=== PATIENT | female | born 1945 | race Two or more races ===

== ENCOUNTER 2020-03-17 10:00 | Outpatient (CLI) | payer OTHER ==
[2020-03-17 11:48] LABS: C-REACTIVE PROTEIN 0.4 mg/dL (0.0-0.9)
[2020-03-17 11:49] LABS: BILIRUBIN,TOTAL 0.5 mg/dL (0.2-1.0); CALCIUM, SERUM 9.3 mg/dL (8.5-10.1); CREATININE 0.6 mg/dL (0.6-1.3); POTASSIUM 3.8 mmol/L (3.5-5.1); TOTAL PROTEIN, SERUM 7.3 g/dL (6.4-8.2)
[2020-03-17 11:59] LABS: BASOPHILS % (AUTO) 0.6 % (0.0-2.0); EOSINOPHILS % (AUTO) 1.9 % (0.0-6.0); HEMATOCRIT 43 % (33-45); HEMOGLOBIN 13.9 g/dL (11.5-14.8); LYMPHOCYTES # (AUTO) 1.1 /CMM (0.8-4.8); LYMPHOCYTES % (AUTO) 25.3 % (20.0-44.0); MEAN CORPUSCULAR HGB CONC 33 g/dl (31.0-36.0); MEAN CORPUSCULAR VOLUME 91 fL (82-100); MONOCYTES # (AUTO) 0.3 /CMM (0.1-1.30); MONOCYTES % (AUTO) 7.4 % (2.0-12.0); NEUTROPHILS # (AUTO) 2.8 /CMM (1.8-8.9); NEUTROPHILS % (AUTO) 64.8 % (43.0-81.0); PLATELET COUNT (AUTO) 219 /CMM (150-450); RED BLOOD CELL COUNT(AUTO) 4.66 MIL/uL (4.0-5.2); WHITE BLOOD COUNT (AUTO) 4.2 K/uL (4.3-11.0)
[2020-03-17 13:12] LABS: APPEARANCE,URINE SL CLOUDY (CLEAR); BILIRUBIN,URINE NEGATIVE (NEGATIVE); BLOOD, URINE NEGATIVE Ery/uL (NEGATIVE); COLOR,URINE YELLOW (YELLOW); KETONES,URINE NEGATIVE (NEGATIVE); LEUKOCYTE ESTERASE ,URINE NEGATIVE (NEGATIVE); NITRITE, URINE NEGATIVE (NEGATIVE); PROTEIN,URINE NEGATIVE (NEGATIVE); UGLUCOSE NEGATIVE (NEGATIVE); UROBILINOGEN,URINE 0.2 EU/dL (0.2)
== END 2020-03-17 23:59 | disposition home or self-care (01) ==
LOC: WOU 10:00
PROVIDERS: ATTEND Internal Medicine
DX: M17.0 Bilateral primary osteoarthritis of knee (principal); R10.9 Unspecified abdominal pain; J40 Bronchitis, not specified as acute or chronic; I10 Essential (primary) hypertension; E78.5 Hyperlipidemia, unspecified; F41.9 Anxiety disorder, unspecified; K21.9 Gastro-esophageal reflux disease without esophagitis
CPT/HCPCS: 36415; 80053-TC; 80061-TC; 81000-TC; 82306; 85025-TC; 85652-TC; 86140-TC

== ENCOUNTER 2020-03-26 14:39 | Outpatient (CLI) | payer OTHER | END 2020-03-26 23:59 | disposition home or self-care (01) | LOC: LAB 14:39 | PROVIDERS: ATTEND Internal Medicine | DX: Z11.59 Encounter for screening for other viral diseases (principal) | CPT/HCPCS: C9803; U0003 ==

== ENCOUNTER 2020-03-31 12:08 | Outpatient (CLI) | payer OTHER | END 2020-03-31 23:59 | disposition home or self-care (01) | LOC: LAB 12:08 | PROVIDERS: ATTEND Internal Medicine | DX: Z20.828 Contact with and (suspected) exposure to other viral communicable diseases (principal) | CPT/HCPCS: 36415 ==

== ENCOUNTER 2020-06-01 10:50 | Outpatient (CLI) | payer MEDICARE, MEDICAID ==
[2020-06-01 13:23] LABS: BASOPHILS % (AUTO) 0.6 % (0.0-2.0); EOSINOPHILS % (AUTO) 1.8 % (0.0-6.0); HEMATOCRIT 44 % (33-45); HEMOGLOBIN 14.4 g/dL (11.5-14.8); LYMPHOCYTES # (AUTO) 1.1 /CMM (0.8-4.8); LYMPHOCYTES % (AUTO) 21.9 % (20.0-44.0); MEAN CORPUSCULAR HGB CONC 33 g/dl (31.0-36.0); MEAN CORPUSCULAR VOLUME 90 fL (82-100); MONOCYTES # (AUTO) 0.4 /CMM (0.1-1.30); MONOCYTES % (AUTO) 7.5 % (2.0-12.0); NEUTROPHILS # (AUTO) 3.5 /CMM (1.8-8.9); NEUTROPHILS % (AUTO) 68.2 % (43.0-81.0); PLATELET COUNT (AUTO) 222 /CMM (150-450); WHITE BLOOD COUNT (AUTO) 5.1 K/uL (4.3-11.0)
[2020-06-01 13:28] LABS: APPEARANCE,URINE CLEAR (CLEAR); BILIRUBIN,URINE NEGATIVE (NEGATIVE); BLOOD, URINE NEGATIVE Ery/uL (NEGATIVE); COLOR,URINE YELLOW (YELLOW); KETONES,URINE NEGATIVE (NEGATIVE); LEUKOCYTE ESTERASE ,URINE NEGATIVE (NEGATIVE); NITRITE, URINE NEGATIVE (NEGATIVE); PH,URINE 5.5 (5.0-8.0); PROTEIN,URINE NEGATIVE (NEGATIVE); UGLUCOSE NEGATIVE (NEGATIVE); UROBILINOGEN,URINE 0.2 EU/dL (0.2)
[2020-06-01 13:52] LABS: CREATININE, URINE 168.2 MG/DL (30.0-125.0); URINE TOTAL PROTEIN 14.9 mg/dL (0-11.9)
[2020-06-01 13:58] LABS: ALANINE AMINOTRANSFERASE 29 U/L (12-78); ALKALINE PHOSPHATASE 81 U/L (46-116); ASPARTATE AMINOTRANSFERASE 12 U/L (15-37); BILIRUBIN,TOTAL 0.6 mg/dL (0.2-1.0); CALCIUM, SERUM 9.3 mg/dL (8.5-10.1); CARBON DIOXIDE 27 mmol/L (21-32); CHLORIDE 101 mmol/L (98-107); CREATININE 0.7 mg/dL (0.6-1.3); GLUCOSE 92 mg/dL (74-106); MAGNESIUM 1.9 mg/dL (1.8-2.4); PHOSPHORUS 3.8 mg/dL (2.5-4.9); POTASSIUM 4.3 mmol/L (3.5-5.1); SODIUM SERUM 136 mmol/L (136-145); TOTAL PROTEIN, SERUM 7.7 g/dL (6.4-8.2); UREA NITROGEN, BLOOD 15 mg/dL (7-18)
[2020-06-01 14:05] LABS: CHOLESTEROL 232 mg/dL (<200); FREE T4 (FREE THYROXINE) 1.08 ng/dL (0.76-1.46); HDL CHOLESTEROL 66 mg/dL (40-60); LDL 129 mg/dL (0-99); THYROID STIMULATING HORMONE 1.118 uIU/mL (0.358-3.74); TRIGLYCERIDES 219 mg/dL (30-150)
[2020-06-01 14:22] LABS: C-REACTIVE PROTEIN < 0.2 mg/dL (0.0-0.9)
[2020-06-02 08:10] LABS: FOLIC ACID 16.1 ng/mL (>3.0)
[2020-06-02 12:11] LABS: *ANA ANTI-CENTROMERE B AB 4.5 AI (0.0-0.9); *ANA ANTI-DNA(DS) AB, QN 3 IU/mL (0-9); *ANA ANTI-JO-1 <0.2 AI (0.0-0.9); *ANA ANTICHROMATIN ANTIBODY <0.2 AI (0.0-0.9); *ANA RNP ANTIBODIES 0.4 AI (0.0-0.9); *ANA SJOGREN'S ANTI-SS-A <0.2 AI (0.0-0.9); *ANA SJOGREN'S ANTI-SS-B <0.2 AI (0.0-0.9); *ANAANTI-SCLERODERMA-70 AB 0.5 AI (0.0-0.9); *ANASMITH AB <0.2 AI (0.0-0.9)
== END 2020-06-01 23:59 | disposition home or self-care (01) ==
LOC: MSC 10:50
PROVIDERS: ATTEND Internal Medicine
DX: M17.0 Bilateral primary osteoarthritis of knee (principal); I10 Essential (primary) hypertension; E78.5 Hyperlipidemia, unspecified; J40 Bronchitis, not specified as acute or chronic; F41.9 Anxiety disorder, unspecified; E55.9 Vitamin D deficiency, unspecified; K21.9 Gastro-esophageal reflux disease without esophagitis; Z79.899 Other long term (current) drug therapy
CPT/HCPCS: 36415; 80053; 80061; 81001; 82306; 82570; 82607; 82746; 83036; 83735; 84100; 84155; 84439; 84443; 85025; 85652; 86140; 86225; 86235 ×8; G0463; 81000-TC

== ENCOUNTER 2020-09-28 10:29 | Outpatient (CLI) | payer MEDICARE, MEDICAID | END 2020-09-28 23:59 | disposition home or self-care (01) | LOC: MSC 10:29 | PROVIDERS: ATTEND Internal Medicine | DX: R10.9 Unspecified abdominal pain (principal); J32.9 Chronic sinusitis, unspecified; E55.9 Vitamin D deficiency, unspecified; E78.5 Hyperlipidemia, unspecified; M17.0 Bilateral primary osteoarthritis of knee; I10 Essential (primary) hypertension; F41.9 Anxiety disorder, unspecified; K21.9 Gastro-esophageal reflux disease without esophagitis; Z79.899 Other long term (current) drug therapy ==

== ENCOUNTER 2021-10-06 08:55 | Outpatient (CLI) | payer MEDICARE, OTHER ==
[2021-10-06 11:30] LABS: BASOPHILS % (AUTO) 0.5 % (0.0-2.0); EOSINOPHILS % (AUTO) 1.8 % (0.0-6.0); HEMATOCRIT 44 % (33-45); HEMOGLOBIN 14.6 g/dL (11.5-14.8); LYMPHOCYTES # (AUTO) 1.2 K/uL (0.8-4.8); LYMPHOCYTES % (AUTO) 20.1 % (20.0-44.0); MEAN CORPUSCULAR HGB CONC 33 g/dl (31.0-36.0); MEAN CORPUSCULAR VOLUME 92 fL (82-100); MONOCYTES # (AUTO) 0.4 K/uL (0.1-1.30); MONOCYTES % (AUTO) 6.8 % (2.0-12.0); NEUTROPHILS # (AUTO) 4.4 K/uL (1.8-8.9); NEUTROPHILS % (AUTO) 70.8 % (43.0-81.0); PLATELET COUNT (AUTO) 178 K/uL (150-450); WHITE BLOOD COUNT (AUTO) 6.1 K/uL (4.3-11.0)
[2021-10-06 11:54] LABS: BILIRUBIN,URINE NEGATIVE (NEGATIVE); COLOR,URINE YELLOW (YELLOW); LEUKOCYTE ESTERASE ,URINE NEGATIVE (NEGATIVE); NITRITE, URINE NEGATIVE (NEGATIVE); PH,URINE 6.5 (5.0-8.0); PROTEIN,URINE NEGATIVE (NEGATIVE); UGLUCOSE NEGATIVE (NEGATIVE); UROBILINOGEN,URINE 0.2 EU/dL (0.2)
[2021-10-06 12:30] LABS: URINE TOTAL PROTEIN 8.6 mg/dL (0-11.9)
[2021-10-06 12:50] LABS: ALBUMIN 4.1 g/dL (3.4-5.0); BILIRUBIN,TOTAL 0.7 mg/dL (0.2-1.0); CALCIUM, SERUM 9.6 mg/dL (8.5-10.1); CREATININE 0.7 mg/dL (0.6-1.3); PHOSPHORUS 2.7 mg/dL (2.5-4.9)
[2021-10-06 12:58] LABS: THYROID STIMULATING HORMONE 1.201 uIU/mL (0.358-3.74)
[2021-10-06 13:01] LABS: C-REACTIVE PROTEIN 0.2 mg/dL (0.0-0.9)
[2021-10-06 13:12] LABS: RBC,URINE 25-50 /HPF (0-2); WBC,URINE 0-3 /HPF (0-3)
[2021-10-06 13:13] LABS: BACTERIA,URINE FEW /HPF (None Seen); SQUAMOUS EPITHELIAL CELL,UR NONE SEEN /HPF (None Seen)
== END 2021-10-06 23:59 | disposition home or self-care (01) ==
LOC: MSC 08:55
PROVIDERS: ATTEND Internal Medicine
DX: M17.11 Unilateral primary osteoarthritis, right knee (principal); I83.91 Asymptomatic varicose veins of right lower extremity; E55.9 Vitamin D deficiency, unspecified; I10 Essential (primary) hypertension; E78.1 Pure hyperglyceridemia; K21.9 Gastro-esophageal reflux disease without esophagitis; F41.9 Anxiety disorder, unspecified; G47.00 Insomnia, unspecified; Z87.09 Personal history of other diseases of the respiratory system; Z79.899 Other long term (current) drug therapy
CPT/HCPCS: 36415; 80053; 80061; 81001; 82043; 82306; 82570; 82607; 82728; 82746; 83036; 83540; 83735; 84100; 84155; 84439; 84443; 85025; 85652; 86038; 86140; G0463

== ENCOUNTER 2021-10-11 10:30 | Outpatient (CLI) | payer MEDICARE, OTHER | END 2021-10-11 23:59 | disposition home or self-care (01) | LOC: MSC 10:30 | PROVIDERS: ATTEND Internal Medicine | DX: R31.9 Hematuria, unspecified (principal); M17.11 Unilateral primary osteoarthritis, right knee; I83.91 Asymptomatic varicose veins of right lower extremity; E55.9 Vitamin D deficiency, unspecified; E78.1 Pure hyperglyceridemia; I10 Essential (primary) hypertension; K21.9 Gastro-esophageal reflux disease without esophagitis; F41.9 Anxiety disorder, unspecified; G47.00 Insomnia, unspecified; Z87.09 Personal history of other diseases of the respiratory system; Z79.899 Other long term (current) drug therapy ==

== ENCOUNTER 2021-11-08 10:20 | Outpatient (CLI) | payer MEDICARE, OTHER ==
[2021-11-08 11:00] LABS: BILIRUBIN,URINE NEGATIVE (NEGATIVE); COLOR,URINE YELLOW (YELLOW); LEUKOCYTE ESTERASE ,URINE NEGATIVE (NEGATIVE); NITRITE, URINE NEGATIVE (NEGATIVE); PROTEIN,URINE NEGATIVE (NEGATIVE); UGLUCOSE NEGATIVE (NEGATIVE); UROBILINOGEN,URINE 0.2 EU/dL (0.2)
[2021-11-08 11:47] LABS: BACTERIA,URINE None seen /HPF (None Seen); SQUAMOUS EPITHELIAL CELL,UR Few /HPF (None Seen)
== END 2021-11-08 23:59 | disposition home or self-care (01) ==
LOC: MSC 10:20 → LAB 23:59
PROVIDERS: ATTEND Internal Medicine
DX: R31.9 Hematuria, unspecified (principal)
CPT/HCPCS: 81001; 87086-TC

== ENCOUNTER 2021-11-10 14:30 | Outpatient (CLI) | payer MEDICARE, OTHER | END 2021-11-10 23:59 | disposition home or self-care (01) | LOC: MSC 14:30 | PROVIDERS: ATTEND Internal Medicine | DX: M17.11 Unilateral primary osteoarthritis, right knee (principal); R31.9 Hematuria, unspecified; I83.91 Asymptomatic varicose veins of right lower extremity; E55.9 Vitamin D deficiency, unspecified; E78.1 Pure hyperglyceridemia; I10 Essential (primary) hypertension; K21.9 Gastro-esophageal reflux disease without esophagitis; Z76.0 Encounter for issue of repeat prescription; F41.9 Anxiety disorder, unspecified; G47.00 Insomnia, unspecified; Z87.09 Personal history of other diseases of the respiratory system; Z79.899 Other long term (current) drug therapy ==

== ENCOUNTER 2021-12-01 10:30 | Outpatient (CLI) | payer MEDICARE, OTHER | END 2021-12-01 23:59 | disposition home or self-care (01) | LOC: MSC 10:30 | PROVIDERS: ATTEND Internal Medicine | DX: I10 Essential (primary) hypertension (principal); Z91.14 Patient's other noncompliance with medication regimen; R53.83 Other fatigue; G47.00 Insomnia, unspecified; R10.9 Unspecified abdominal pain; F41.9 Anxiety disorder, unspecified; R31.9 Hematuria, unspecified; M17.11 Unilateral primary osteoarthritis, right knee; I86.8 Varicose veins of other specified sites; E55.9 Vitamin D deficiency, unspecified; E78.1 Pure hyperglyceridemia; K21.9 Gastro-esophageal reflux disease without esophagitis ==

== ENCOUNTER 2021-12-14 11:41 | Outpatient (CLI) | payer MEDICARE, OTHER | END 2021-12-14 23:59 | disposition home or self-care (01) | LOC: US 11:41 | PROVIDERS: ATTEND Internal Medicine | DX: N20.0 Calculus of kidney (principal); K80.20 Calculus of gallbladder without cholecystitis without obstruction; N13.30 Unspecified hydronephrosis | CPT/HCPCS: 76700-TC ==

== ENCOUNTER → 2021-12-29 | Outpatient (CLI) | payer MEDICARE, OTHER | END | disposition home or self-care (01) | LOC: MSC 11:00 | PROVIDERS: ATTEND Internal Medicine | DX: N13.2 Hydronephrosis with renal and ureteral calculous obstruction (principal); I10 Essential (primary) hypertension; Z91.14 Patient's other noncompliance with medication regimen; R53.83 Other fatigue; G47.00 Insomnia, unspecified; R31.9 Hematuria, unspecified; M17.11 Unilateral primary osteoarthritis, right knee; I86.8 Varicose veins of other specified sites; E55.9 Vitamin D deficiency, unspecified; E78.1 Pure hyperglyceridemia; K21.9 Gastro-esophageal reflux disease without esophagitis; F41.9 Anxiety disorder, unspecified ==

== ENCOUNTER → 2022-01-04 | Outpatient (CLI) | payer MEDICARE, OTHER ==
[2022-01-04 15:58] LABS: BASOPHILS % (AUTO) 0.6 % (0.0-2.0); EOSINOPHILS % (AUTO) 1.3 % (0.0-6.0); HEMATOCRIT 39 % (33-45); HEMOGLOBIN 13.2 g/dL (11.5-14.8); LYMPHOCYTES # (AUTO) 1.2 K/uL (0.8-4.8); MEAN CORPUSCULAR HGB CONC 34 g/dl (31.0-36.0); MEAN CORPUSCULAR VOLUME 92 fL (82-100); MONOCYTES # (AUTO) 0.6 K/uL (0.1-1.30); MONOCYTES % (AUTO) 6.8 % (2.0-12.0); NEUTROPHILS # (AUTO) 6.5 K/uL (1.8-8.9); NEUTROPHILS % (AUTO) 77.3 % (43.0-81.0); PLATELET COUNT (AUTO) 249 K/uL (150-450); RED BLOOD CELL COUNT(AUTO) 4.31 MIL/uL (4.0-5.2); WHITE BLOOD COUNT (AUTO) 8.4 K/uL (4.3-11.0)
[2022-01-04 16:14] LABS: URIC ACID 3.8 mg/dL (2.6-7.2)
[2022-01-04 16:15] LABS: ALBUMIN 3.8 g/dL (3.4-5.0); BILIRUBIN,TOTAL 0.5 mg/dL (0.2-1.0); CALCIUM, SERUM 9.5 mg/dL (8.5-10.1); CREATININE 0.7 mg/dL (0.6-1.3); TOTAL PROTEIN, SERUM 7.4 g/dL (6.4-8.2)
== END | disposition home or self-care (01) ==
LOC: LAB 14:25
PROVIDERS: ATTEND Internal Medicine
DX: N20.0 Calculus of kidney (principal)
CPT/HCPCS: 36415; 80053-TC; 82570-TC; 84105-TC; 84300-TC; 84550-TC; 84560-TC; 85025-TC

== ENCOUNTER 2022-01-09 09:12 | Outpatient (CLI) | payer MEDICARE, OTHER ==
[2022-01-09] MEDS ORDERED: CT SWABBABLE VALVE TRANS SET 1 EA INFUS.SET MC ONE (09:56)
[2022-01-09] MEDS ORDERED: IOHEXOL-300 100 ML VIAL IV ONE (09:56)
[2022-01-09] MEDS ORDERED: IV NS 0.9% 250 ML IV ONE (09:56)
== END 2022-01-09 23:59 | disposition home or self-care (01) ==
LOC: CT 09:12
PROVIDERS: ATTEND Internal Medicine
DX: N28.1 Cyst of kidney, acquired (principal); K80.20 Calculus of gallbladder without cholecystitis without obstruction; M62.08 Separation of muscle (nontraumatic), other site; K43.9 Ventral hernia without obstruction or gangrene; Z90.89 Acquired absence of other organs
CPT/HCPCS: 74178; J7050; Q9967

== ENCOUNTER 2022-01-12 10:43 | Outpatient (CLI) | payer MEDICARE, OTHER | END 2022-01-12 23:59 | disposition home or self-care (01) | LOC: MSC 10:43 | PROVIDERS: ATTEND Internal Medicine | DX: R10.13 Epigastric pain (principal); Z86.010 Personal history of colon polyps; N28.1 Cyst of kidney, acquired; I10 Essential (primary) hypertension; R53.83 Other fatigue; G47.00 Insomnia, unspecified; R31.9 Hematuria, unspecified; M17.11 Unilateral primary osteoarthritis, right knee; I86.8 Varicose veins of other specified sites; E55.9 Vitamin D deficiency, unspecified; E78.1 Pure hyperglyceridemia; K21.9 Gastro-esophageal reflux disease without esophagitis; F41.9 Anxiety disorder, unspecified ==

== ENCOUNTER 2022-02-09 09:45 | Outpatient (CLI) | payer MEDICARE, OTHER ==
[2022-02-09 10:59] LABS: BASOPHILS % (AUTO) 0.7 % (0.0-2.0); EOSINOPHILS % (AUTO) 1.1 % (0.0-6.0); HEMATOCRIT 42 % (33-45); LYMPHOCYTES % (AUTO) 14.4 % (20.0-44.0); MEAN CORPUSCULAR HGB CONC 33 g/dl (31.0-36.0); MEAN CORPUSCULAR VOLUME 91 fL (82-100); MONOCYTES # (AUTO) 0.5 K/uL (0.1-1.30); MONOCYTES % (AUTO) 7.3 % (2.0-12.0); NEUTROPHILS # (AUTO) 5.4 K/uL (1.8-8.9); NEUTROPHILS % (AUTO) 76.5 % (43.0-81.0); PLATELET COUNT (AUTO) 223 K/uL (150-450); RED BLOOD CELL COUNT(AUTO) 4.64 MIL/uL (4.0-5.2); WHITE BLOOD COUNT (AUTO) 7.1 K/uL (4.3-11.0)
[2022-02-09 11:14] LABS: CHOLESTEROL 183 mg/dL (<200); HDL CHOLESTEROL 79 mg/dL (40-60); LDL 78 mg/dL (0-99); TRIGLYCERIDES 216 mg/dL (30-150); URIC ACID 3.5 mg/dL (2.6-7.2)
[2022-02-09 11:19] LABS: ALANINE AMINOTRANSFERASE 27 U/L (12-78); ALKALINE PHOSPHATASE 69 U/L (46-116); ASPARTATE AMINOTRANSFERASE 10 U/L (15-37); BILIRUBIN,TOTAL 0.6 mg/dL (0.2-1.0); CALCIUM, SERUM 9.6 mg/dL (8.5-10.1); CARBON DIOXIDE 25 mmol/L (21-32); CHLORIDE 105 mmol/L (98-107); CREATININE 0.7 mg/dL (0.6-1.3); GLUCOSE 109 mg/dL (74-106); POTASSIUM 4.2 mmol/L (3.5-5.1); SODIUM SERUM 138 mmol/L (136-145); TOTAL PROTEIN, SERUM 7.8 g/dL (6.4-8.2); UREA NITROGEN, BLOOD 15 mg/dL (7-18)
[2022-02-09 11:23] LABS: C-REACTIVE PROTEIN < 0.2 mg/dL (0.0-0.9)
== END 2022-02-09 23:59 | disposition home or self-care (01) ==
LOC: MSC 09:45
PROVIDERS: ATTEND Internal Medicine
DX: M25.471 Effusion, right ankle (principal); Z87.39 Personal history of other diseases of the musculoskeletal system and connective tissue; E78.1 Pure hyperglyceridemia; E78.5 Hyperlipidemia, unspecified; Z86.010 Personal history of colon polyps; N28.1 Cyst of kidney, acquired; I10 Essential (primary) hypertension; R53.83 Other fatigue; G47.00 Insomnia, unspecified; R31.9 Hematuria, unspecified; M17.11 Unilateral primary osteoarthritis, right knee; Z79.891 Long term (current) use of opiate analgesic; I83.91 Asymptomatic varicose veins of right lower extremity; E55.9 Vitamin D deficiency, unspecified; K21.9 Gastro-esophageal reflux disease without esophagitis; F41.9 Anxiety disorder, unspecified
CPT/HCPCS: 36415; 73610; 73630; 80053; 80061; 83036; 84550; 85025; 85652; 86140; G0463

== ENCOUNTER 2022-02-15 14:00 | Outpatient (CLI) | payer MEDICARE, OTHER | END 2022-02-15 23:59 | disposition home or self-care (01) | LOC: MSC 14:00 | PROVIDERS: ATTEND Internal Medicine | DX: M25.471 Effusion, right ankle (principal); E78.1 Pure hyperglyceridemia; E78.5 Hyperlipidemia, unspecified; Z86.010 Personal history of colon polyps; N28.1 Cyst of kidney, acquired; I10 Essential (primary) hypertension; R53.83 Other fatigue; G47.00 Insomnia, unspecified; R31.9 Hematuria, unspecified; M17.11 Unilateral primary osteoarthritis, right knee; Z79.891 Long term (current) use of opiate analgesic; I83.91 Asymptomatic varicose veins of right lower extremity; E55.9 Vitamin D deficiency, unspecified; K21.9 Gastro-esophageal reflux disease without esophagitis; F41.9 Anxiety disorder, unspecified ==

== ENCOUNTER 2022-02-17 13:44 | Outpatient (CLI) | payer MEDICARE, OTHER | END 2022-02-17 23:59 | disposition home or self-care (01) | LOC: MRI 13:44 | PROVIDERS: ATTEND Internal Medicine | DX: S93.331A Other subluxation of right foot, initial encounter (principal); M19.071 Primary osteoarthritis, right ankle and foot; M77.51 Other enthesopathy of right foot and ankle; M65.871 Other synovitis and tenosynovitis, right ankle and foot; X58.XXXA Exposure to other specified factors, initial encounter; Y93.89 Activity, other specified; Y92.89 Other specified places as the place of occurrence of the external cause; Y99.8 Other external cause status | CPT/HCPCS: 73718-TC ==

== ENCOUNTER 2022-02-28 09:15 | Outpatient (CLI) | payer MEDICARE, OTHER | END 2022-02-28 23:59 | disposition home or self-care (01) | LOC: MSC 09:15 | PROVIDERS: ATTEND Internal Medicine | DX: M25.471 Effusion, right ankle (principal); R53.83 Other fatigue; E78.1 Pure hyperglyceridemia; E78.5 Hyperlipidemia, unspecified; Z86.010 Personal history of colon polyps; N28.1 Cyst of kidney, acquired; I10 Essential (primary) hypertension; G47.00 Insomnia, unspecified; R31.9 Hematuria, unspecified; M17.11 Unilateral primary osteoarthritis, right knee; Z79.891 Long term (current) use of opiate analgesic; I83.91 Asymptomatic varicose veins of right lower extremity; E55.9 Vitamin D deficiency, unspecified; K21.9 Gastro-esophageal reflux disease without esophagitis; F41.9 Anxiety disorder, unspecified ==

== ENCOUNTER 2022-03-06 14:17 | Outpatient (CLI) | payer MEDICARE, OTHER | END 2022-03-06 23:59 | disposition home or self-care (01) | LOC: MSC 14:17 | PROVIDERS: ATTEND Internal Medicine | DX: R53.83 Other fatigue (principal) | CPT/HCPCS: J3420 ×2; 96372 ==

== ENCOUNTER 2022-03-21 10:42 | Outpatient (CLI) | payer MEDICARE, OTHER | END 2022-03-21 23:59 | disposition home or self-care (01) | LOC: WOU 10:42 → MSC 23:59 | PROVIDERS: ATTEND Internal Medicine | DX: R53.83 Other fatigue (principal) | CPT/HCPCS: 96372; J3420 ==

== ENCOUNTER 2022-04-07 11:31 | Outpatient (CLI) | payer MEDICARE, OTHER | END 2022-04-07 23:59 | disposition home or self-care (01) | LOC: MSC 11:31 | PROVIDERS: ATTEND Internal Medicine | DX: R53.83 Other fatigue (principal) | CPT/HCPCS: J3420 ×2; 96372 ==

== ENCOUNTER → 2022-05-11 | Outpatient (CLI) | payer MEDICARE, OTHER | END | disposition home or self-care (01) | LOC: MSC 15:30 | PROVIDERS: ATTEND Internal Medicine | DX: M17.11 Unilateral primary osteoarthritis, right knee (principal); Z79.891 Long term (current) use of opiate analgesic; M25.471 Effusion, right ankle; R53.83 Other fatigue; E78.1 Pure hyperglyceridemia; E78.5 Hyperlipidemia, unspecified; Z86.010 Personal history of colon polyps; N28.1 Cyst of kidney, acquired; I10 Essential (primary) hypertension; G47.00 Insomnia, unspecified; R31.9 Hematuria, unspecified; I83.91 Asymptomatic varicose veins of right lower extremity; E55.9 Vitamin D deficiency, unspecified; K21.9 Gastro-esophageal reflux disease without esophagitis; F41.9 Anxiety disorder, unspecified ==

== ENCOUNTER 2022-05-16 10:47 | Outpatient (CLI) | payer MEDICARE, OTHER ==
[2022-05-16 12:27] LABS: BASOPHILS % (AUTO) 0.3 % (0.0-2.0); EOSINOPHILS % (AUTO) 1.7 % (0.0-6.0); HEMATOCRIT 41 % (33-45); HEMOGLOBIN 13.4 g/dL (11.5-14.8); LYMPHOCYTES # (AUTO) 1.3 K/uL (0.8-4.8); LYMPHOCYTES % (AUTO) 19.7 % (20.0-44.0); MEAN CORPUSCULAR HGB CONC 33 g/dl (31.0-36.0); MEAN CORPUSCULAR VOLUME 92 fL (82-100); MONOCYTES # (AUTO) 0.5 K/uL (0.1-1.30); MONOCYTES % (AUTO) 8.5 % (2.0-12.0); NEUTROPHILS # (AUTO) 4.5 K/uL (1.8-8.9); NEUTROPHILS % (AUTO) 69.8 % (43.0-81.0); PLATELET COUNT (AUTO) 209 K/uL (150-450); RED BLOOD CELL COUNT(AUTO) 4.47 MIL/uL (4.0-5.2); WHITE BLOOD COUNT (AUTO) 6.5 K/uL (4.3-11.0)
[2022-05-16 12:54] LABS: THYROID STIMULATING HORMONE 1.326 uIU/mL (0.358-3.74)
[2022-05-16 12:55] LABS: C-REACTIVE PROTEIN 0.2 mg/dL (0.0-0.9)
[2022-05-16 13:01] LABS: BILIRUBIN,URINE NEGATIVE (NEGATIVE); COLOR,URINE YELLOW (YELLOW); LEUKOCYTE ESTERASE ,URINE NEGATIVE (NEGATIVE); NITRITE, URINE NEGATIVE (NEGATIVE); PH,URINE 5.5 (5.0-8.0); PROTEIN,URINE NEGATIVE (NEGATIVE); UGLUCOSE NEGATIVE (NEGATIVE); UROBILINOGEN,URINE 0.2 EU/dL (0.2)
[2022-05-16 13:06] LABS: ALBUMIN 4.1 g/dL (3.4-5.0); BILIRUBIN,TOTAL 0.9 mg/dL (0.2-1.0); CALCIUM, SERUM 9.4 mg/dL (8.5-10.1); CREATININE 0.8 mg/dL (0.6-1.3); MAGNESIUM 1.9 mg/dL (1.8-2.4); PHOSPHORUS 3.5 mg/dL (2.5-4.9); POTASSIUM 4.6 mmol/L (3.5-5.1); TOTAL PROTEIN, SERUM 7.7 g/dL (6.4-8.2)
== END 2022-05-16 23:59 | disposition home or self-care (01) ==
LOC: LAB 10:47
PROVIDERS: ATTEND Internal Medicine
DX: N20.0 Calculus of kidney (principal); K21.9 Gastro-esophageal reflux disease without esophagitis; E78.5 Hyperlipidemia, unspecified; E55.9 Vitamin D deficiency, unspecified; M25.562 Pain in left knee; M25.561 Pain in right knee
CPT/HCPCS: 36415; 80053-TC; 80061-TC; 82306; 82607-TC; 83735-TC; 84100-TC; 84439-TC; 84443-TC; 85025-TC; 85652-TC; 86140-TC

== ENCOUNTER → 2022-05-23 | Outpatient (CLI) | payer MEDICARE, OTHER | END | disposition home or self-care (01) | LOC: MSC 14:00 | PROVIDERS: ATTEND Internal Medicine | DX: K21.9 Gastro-esophageal reflux disease without esophagitis (principal); R53.83 Other fatigue; M25.471 Effusion, right ankle; E78.1 Pure hyperglyceridemia; N28.1 Cyst of kidney, acquired; I10 Essential (primary) hypertension; G47.00 Insomnia, unspecified; R31.9 Hematuria, unspecified; M17.11 Unilateral primary osteoarthritis, right knee; Z79.891 Long term (current) use of opiate analgesic; I83.91 Asymptomatic varicose veins of right lower extremity; E55.9 Vitamin D deficiency, unspecified; F41.9 Anxiety disorder, unspecified; Z86.010 Personal history of colon polyps ==

== ENCOUNTER 2022-06-30 14:53 | Outpatient (CLI) | payer MEDICARE, OTHER | END 2022-06-30 23:59 | disposition home or self-care (01) | LOC: MSC 14:53 | PROVIDERS: ATTEND Internal Medicine | DX: R53.83 Other fatigue (principal) | CPT/HCPCS: 96372; J3420 ==

== ENCOUNTER 2022-08-31 08:58 | Outpatient (CLI) | payer MEDICARE, OTHER | END 2022-08-31 23:59 | disposition home or self-care (01) | LOC: MSC 08:58 | PROVIDERS: ATTEND Internal Medicine | DX: R60.0 Localized edema (principal); R06.02 Shortness of breath; L65.9 Nonscarring hair loss, unspecified; K21.9 Gastro-esophageal reflux disease without esophagitis; K29.70 Gastritis, unspecified, without bleeding; R53.83 Other fatigue; M25.471 Effusion, right ankle; E78.1 Pure hyperglyceridemia; N28.1 Cyst of kidney, acquired; I10 Essential (primary) hypertension; G47.00 Insomnia, unspecified; R31.9 Hematuria, unspecified; M17.11 Unilateral primary osteoarthritis, right knee; Z79.891 Long term (current) use of opiate analgesic; I83.91 Asymptomatic varicose veins of right lower extremity; E55.9 Vitamin D deficiency, unspecified; F41.9 Anxiety disorder, unspecified; Z86.010 Personal history of colon polyps ==

== ENCOUNTER 2022-08-31 09:41 | Outpatient (CLI) | payer MEDICARE, OTHER | END 2022-08-31 23:59 | disposition home or self-care (01) | LOC: WOU 09:41 | PROVIDERS: ATTEND Podiatrist Foot & Ankle Surgery | DX: M76.822 Posterior tibial tendinitis, left leg (principal); M76.821 Posterior tibial tendinitis, right leg; M21.42 Flat foot [pes planus] (acquired), left foot; M21.41 Flat foot [pes planus] (acquired), right foot; R60.0 Localized edema; M79.605 Pain in left leg; M79.604 Pain in right leg | CPT/HCPCS: G0463 ==

== ENCOUNTER 2022-09-26 10:10 | Outpatient (CLI) | payer MEDICARE, OTHER ==
[2022-09-26 10:42] LABS: BASOPHILS # (AUTO) 0.1 K/uL (0.0-0.2); BASOPHILS % (AUTO) 1.1 % (0.0-2.0); EOSINOPHILS % (AUTO) 1.7 % (0.0-6.0); HEMATOCRIT 43 % (33-45); LYMPHOCYTES # (AUTO) 1.4 K/uL (0.8-4.8); LYMPHOCYTES % (AUTO) 22.1 % (20.0-44.0); MEAN CORPUSCULAR HGB CONC 32 g/dl (31.0-36.0); MEAN CORPUSCULAR VOLUME 90 fL (82-100); MONOCYTES # (AUTO) 0.5 K/uL (0.1-1.30); MONOCYTES % (AUTO) 7.9 % (2.0-12.0); NEUTROPHILS # (AUTO) 4.2 K/uL (1.8-8.9); NEUTROPHILS % (AUTO) 67.2 % (43.0-81.0); PLATELET COUNT (AUTO) 196 K/uL (150-450); RED BLOOD CELL COUNT(AUTO) 4.82 MIL/uL (4.0-5.2); WHITE BLOOD COUNT (AUTO) 6.3 K/uL (4.3-11.0)
[2022-09-26 11:08] LABS: IRON, SERUM 109 ug/dl (50-175); TOTAL IRON BINDING CAPACITY 392 ug/dl (250-450)
[2022-09-26 11:32] LABS: BILIRUBIN,URINE NEGATIVE (NEGATIVE); COLOR,URINE YELLOW (YELLOW); LEUKOCYTE ESTERASE ,URINE NEGATIVE (NEGATIVE); NITRITE, URINE NEGATIVE (NEGATIVE); PROTEIN,URINE NEGATIVE (NEGATIVE); UGLUCOSE NEGATIVE (NEGATIVE); UROBILINOGEN,URINE 0.2 EU/dL (0.2)
[2022-09-26 11:57] LABS: CHOLESTEROL 200 mg/dL (<200); FERRITIN 66 ng/mL (8-388); HDL CHOLESTEROL 62 mg/dL (40-60); LDL 105 mg/dL (0-99); THYROID STIMULATING HORMONE 1.586 uIU/mL (0.358-3.74); TRIGLYCERIDES 214 mg/dL (30-150)
[2022-09-26 12:00] LABS: ALANINE AMINOTRANSFERASE 20 U/L (12-78); ALBUMIN 3.9 g/dL (3.4-5.0); ALKALINE PHOSPHATASE 78 U/L (46-116); ASPARTATE AMINOTRANSFERASE 9 U/L (15-37); BILIRUBIN,TOTAL 0.7 mg/dL (0.2-1.0); CALCIUM, SERUM 9.4 mg/dL (8.5-10.1); CARBON DIOXIDE 25 mmol/L (21-32); CHLORIDE 101 mmol/L (98-107); CREATININE 0.9 mg/dL (0.6-1.3); GLUCOSE 100 mg/dL (74-106); MAGNESIUM 1.9 mg/dL (1.8-2.4); PHOSPHORUS 3.5 mg/dL (2.5-4.9); POTASSIUM 4.5 mmol/L (3.5-5.1); SODIUM SERUM 134 mmol/L (136-145); TOTAL PROTEIN, SERUM 7.5 g/dL (6.4-8.2); UREA NITROGEN, BLOOD 14 mg/dL (7-18)
[2022-09-26 12:10] LABS: C-REACTIVE PROTEIN < 0.2 mg/dL (0.0-0.9)
== END 2022-09-26 23:59 | disposition home or self-care (01) ==
LOC: LAB 10:10
PROVIDERS: ATTEND Internal Medicine
DX: E78.5 Hyperlipidemia, unspecified (principal); K21.9 Gastro-esophageal reflux disease without esophagitis; R06.02 Shortness of breath; R31.9 Hematuria, unspecified; R53.83 Other fatigue
CPT/HCPCS: 36415; 80053-TC; 80061-TC; 82306; 82607-TC; 82728-TC; 83540-TC; 83735-TC; 83880; 84100-TC; 84439-TC; 84443-TC; 84550-TC; 85025-TC; 85652-TC; 86140-TC; 87086-TC

== ENCOUNTER 2022-09-28 10:30 | Outpatient (CLI) | payer MEDICARE, OTHER | END 2022-09-28 23:59 | disposition home or self-care (01) | LOC: MSC 10:30 | PROVIDERS: ATTEND Internal Medicine | DX: E78.1 Pure hyperglyceridemia (principal); R06.00 Dyspnea, unspecified; R60.0 Localized edema; L65.9 Nonscarring hair loss, unspecified; K21.9 Gastro-esophageal reflux disease without esophagitis; K29.70 Gastritis, unspecified, without bleeding; R53.83 Other fatigue; M25.471 Effusion, right ankle; N28.1 Cyst of kidney, acquired; I10 Essential (primary) hypertension; G47.00 Insomnia, unspecified; R31.9 Hematuria, unspecified; M17.11 Unilateral primary osteoarthritis, right knee; Z79.891 Long term (current) use of opiate analgesic; I83.91 Asymptomatic varicose veins of right lower extremity; E55.9 Vitamin D deficiency, unspecified; F41.9 Anxiety disorder, unspecified; Z86.010 Personal history of colon polyps ==

== ENCOUNTER 2022-10-02 13:00 | Outpatient (CLI) | payer MEDICARE, OTHER | END 2022-10-02 23:59 | disposition home or self-care (01) | LOC: MSC 13:00 | PROVIDERS: ATTEND Internal Medicine | DX: R53.83 Other fatigue (principal) | CPT/HCPCS: J3420 ×2; 96372 ==

== ENCOUNTER → 2022-11-02 | Outpatient (CLI) | payer MEDICARE, OTHER | END | disposition home or self-care (01) | LOC: MSC 15:30 | PROVIDERS: ATTEND Internal Medicine | DX: K80.20 Calculus of gallbladder without cholecystitis without obstruction (principal); N28.1 Cyst of kidney, acquired; D35.00 Benign neoplasm of unspecified adrenal gland; E78.1 Pure hyperglyceridemia; K20.90 Esophagitis, unspecified without bleeding; K29.70 Gastritis, unspecified, without bleeding; K21.9 Gastro-esophageal reflux disease without esophagitis; R06.00 Dyspnea, unspecified; M25.471 Effusion, right ankle; R60.0 Localized edema; L65.9 Nonscarring hair loss, unspecified; R53.83 Other fatigue; I10 Essential (primary) hypertension; G47.00 Insomnia, unspecified; R31.9 Hematuria, unspecified; M17.11 Unilateral primary osteoarthritis, right knee; Z79.891 Long term (current) use of opiate analgesic; I83.91 Asymptomatic varicose veins of right lower extremity; E55.9 Vitamin D deficiency, unspecified; F41.9 Anxiety disorder, unspecified; Z86.010 Personal history of colon polyps ==

== ENCOUNTER → 2022-12-12 | Outpatient (CLI) | payer MEDICARE, OTHER | END | disposition home or self-care (01) | LOC: MSC 14:30 | PROVIDERS: ATTEND Internal Medicine | DX: J01.90 Acute sinusitis, unspecified (principal); N28.1 Cyst of kidney, acquired; K80.20 Calculus of gallbladder without cholecystitis without obstruction; D35.00 Benign neoplasm of unspecified adrenal gland; E78.1 Pure hyperglyceridemia; K20.90 Esophagitis, unspecified without bleeding; K29.70 Gastritis, unspecified, without bleeding; K21.9 Gastro-esophageal reflux disease without esophagitis; R60.0 Localized edema; R06.00 Dyspnea, unspecified; M25.471 Effusion, right ankle; R53.83 Other fatigue; I10 Essential (primary) hypertension; G47.00 Insomnia, unspecified; R31.9 Hematuria, unspecified; M17.11 Unilateral primary osteoarthritis, right knee; Z79.891 Long term (current) use of opiate analgesic; I83.91 Asymptomatic varicose veins of right lower extremity; E55.9 Vitamin D deficiency, unspecified; F41.9 Anxiety disorder, unspecified ==

== ENCOUNTER 2022-12-18 13:12 | Outpatient (CLI) | payer MEDICARE, OTHER | END 2022-12-18 23:59 | disposition home or self-care (01) | LOC: MSC 13:12 | PROVIDERS: ATTEND Internal Medicine | DX: R53.83 Other fatigue (principal) | CPT/HCPCS: J3420 ×2; 96372 ==

== ENCOUNTER 2023-01-11 14:01 | Outpatient (CLI) | payer MEDICARE, OTHER | END 2023-01-11 23:59 | disposition home or self-care (01) | LOC: MSC 14:01 | PROVIDERS: ATTEND Internal Medicine | DX: M54.50 Low back pain, unspecified (principal); J01.90 Acute sinusitis, unspecified; N28.1 Cyst of kidney, acquired; K80.20 Calculus of gallbladder without cholecystitis without obstruction; D35.00 Benign neoplasm of unspecified adrenal gland; E78.1 Pure hyperglyceridemia; K21.00 Gastro-esophageal reflux disease with esophagitis, without bleeding; R60.0 Localized edema; M25.471 Effusion, right ankle; R53.83 Other fatigue; I10 Essential (primary) hypertension; G47.00 Insomnia, unspecified; R31.9 Hematuria, unspecified; M17.11 Unilateral primary osteoarthritis, right knee; Z79.891 Long term (current) use of opiate analgesic; I83.91 Asymptomatic varicose veins of right lower extremity; E55.9 Vitamin D deficiency, unspecified; F41.9 Anxiety disorder, unspecified ==

== ENCOUNTER 2023-01-15 09:25 | Outpatient (CLI) | payer MEDICARE, OTHER | END 2023-01-15 23:59 | disposition home or self-care (01) | LOC: US 09:25 | PROVIDERS: ATTEND Internal Medicine | DX: M51.35 Other intervertebral disc degeneration, thoracolumbar region (principal); K76.0 Fatty (change of) liver, not elsewhere classified; N20.0 Calculus of kidney; K80.00 Calculus of gallbladder with acute cholecystitis without obstruction; N13.30 Unspecified hydronephrosis; R10.9 Unspecified abdominal pain; N18.9 Chronic kidney disease, unspecified | CPT/HCPCS: 72100-TC; 76700-TC ==

== ENCOUNTER → 2023-01-16 | Outpatient (CLI) | payer MEDICARE, OTHER | END | disposition home or self-care (01) | LOC: XR 01-12 11:59 → MSC 14:30 | PROVIDERS: ATTEND Internal Medicine | DX: N13.30 Unspecified hydronephrosis (principal); M54.50 Low back pain, unspecified; N20.0 Calculus of kidney; N28.1 Cyst of kidney, acquired; K80.20 Calculus of gallbladder without cholecystitis without obstruction; D35.00 Benign neoplasm of unspecified adrenal gland; E78.1 Pure hyperglyceridemia; K21.00 Gastro-esophageal reflux disease with esophagitis, without bleeding; M25.471 Effusion, right ankle; R53.83 Other fatigue; I10 Essential (primary) hypertension; G47.00 Insomnia, unspecified; R31.9 Hematuria, unspecified; M17.11 Unilateral primary osteoarthritis, right knee; Z79.891 Long term (current) use of opiate analgesic; I83.91 Asymptomatic varicose veins of right lower extremity; E55.9 Vitamin D deficiency, unspecified; F41.9 Anxiety disorder, unspecified ==

== ENCOUNTER 2023-02-06 09:30 | Outpatient (CLI) | payer MEDICARE, OTHER | END 2023-02-06 23:59 | disposition home or self-care (01) | LOC: MSC 09:30 | PROVIDERS: ATTEND Internal Medicine | DX: R06.00 Dyspnea, unspecified (principal); M54.50 Low back pain, unspecified; N28.1 Cyst of kidney, acquired; K80.20 Calculus of gallbladder without cholecystitis without obstruction; D35.00 Benign neoplasm of unspecified adrenal gland; K21.00 Gastro-esophageal reflux disease with esophagitis, without bleeding; M25.471 Effusion, right ankle; R53.83 Other fatigue; I10 Essential (primary) hypertension; E78.1 Pure hyperglyceridemia; G47.00 Insomnia, unspecified; R31.9 Hematuria, unspecified; M17.11 Unilateral primary osteoarthritis, right knee; Z79.891 Long term (current) use of opiate analgesic; I83.91 Asymptomatic varicose veins of right lower extremity; E55.9 Vitamin D deficiency, unspecified; F41.9 Anxiety disorder, unspecified ==